=== PATIENT | male | born 1985 | race Caucasian/White ===

== ENCOUNTER → 2018-05-28 | Outpatient (CLI) | payer BC, OTHER ==
[~2018-05-28] MED LIST: CYCL10TA9 PO; NAPR-243 PO; RECEIVED CONTRAST (Hold Metformin) IV SCH; TRM50T PO
[2018-05-28] MEDS: IOHEXOL 350 MG/ML 100 ML (OMNIPAQUE 350) VIAL IV ONE (11:35)
[2018-05-28] MEDS: NS 100 ML (IVPB) BAG IV ONE (11:35)
[2018-05-28] MEDS: CATHETER FLUSH 10 ML SYR IV PRN (11:35)
--- NOTE | 2018-05-28 12:14 | Diagnostic Imaging Report ---
PROCEDURE: CT of the abdomen and pelvis with contrast. TECHNIQUE: Multiple contiguous axial images were obtained through the abdomen and pelvis after administration of intravenous contrast. INDICATION: Pelvic pain and pressure. COMPARISON: No prior studies are available for comparison. FINDINGS: The lung bases are clear. No discrete liver mass is identified. The gallbladder is unremarkable. No biliary ductal dilatation is seen. The pancreas and spleen are unremarkable. No adrenal mass is identified. The kidneys are unremarkable. No hydronephrosis is seen. The aorta is non-aneurysmal. The small and large bowel loops are normal in caliber. No obstruction is seen. There is no ascites. The bladder is unremarkable. No abdominal or pelvic lymphadenopathy is seen. No inflammatory process is identified. The bony structures are unremarkable. IMPRESSION: Unremarkable CT of the abdomen and pelvis. No acute abnormality is detected. Dictated by: Dictated on workstation # [id number]
== END ==
LOC: RAD 11:02
PROVIDERS: ATTEND Nurse Practitioner Family
DX: R10.2 Pelvic and perineal pain (principal)
CPT/HCPCS: 74177

== ENCOUNTER 2018-06-14 06:26 | Outpatient (CLI) | payer OTHER ==
[~2018-06-14] VITALS: Ht 180.3 cm; Wt 97.5 kg
[~2018-06-14 06:26] MED LIST changes: -RECEIVED CONTRAST (Hold Metformin) IV SCH
[2018-06-14] MEDS ORDERED: TAMS0.4C2 PO (14:54)
[2018-06-14] MEDS ORDERED: DEXL60CA PO (14:54)
[2018-06-14] MEDS ORDERED: FINA5TAB6 PO (14:54)
[2018-06-14] MEDS ORDERED: ATOR20TA66 PO (14:54)
== END 2018-06-14 14:56 | disposition home or self-care (01) ==
LOC: PREOP 06:26
PROVIDERS: ATTEND Surgery
DX: Z01.818 Encounter for other preprocedural examination (principal)

== ENCOUNTER 2018-06-21 08:58 | Day surgery (SDC) | payer OTHER ==
[~2018-06-21] VITALS: Ht 180.3 cm; Wt 97.5 kg
[~2018-06-21 08:58] MED LIST changes: +ATOR20TA66 PO; +DEXL60CA PO; +FINA5TAB6 PO; +TAMS0.4C2 PO
--- OUTSIDE RECORDS SUMMARY | 2018-06-21 09:01 | XMS REPORT ---
Author Author Miki Nicole [facility] Address [address] [place], [place] [id number] Care Team Providers Care Maintenance Construction Helper Name Role Phone Miki Nicole PCP Allergies and Adverse Reactions Name Reaction Notes Levaquin feet pain Plan of Treatment Not available. Medications Active Name Start Date Estimated Completion Date SIG Comments Bactrim DS 800-160 mg oral tablet 08/18/2017 take 1 tablet by oral route every 12 hours for 10 days Problem List Not available. Vital Signs Date Time BP-Sys(mm[Hg] BP-Bessie(mm[Hg]) HR(bpm) RR(rpm) Temp WT HT HC BMI BSA BMI Percentile O2 Sat(%) 08/18/2017 5:08:00 PM 128 mmHg 90 mmHg 82 bpm 16 rpm 97.1 F 206.375 lbs 70 in 29.61 kg/m2 2.15 m2 99 % Social History Name Description Comments Tobacco Never smoker Alcohol Never Lives with spouse History of Procedures Date Ordered Description Order Status 08/18/2017 12:00 AM Rocephin 1 gram Injection Reviewed 08/18/2017 12:00 AM THER/PROPH/DIAG INJ SC/IM Reviewed Results Summary Not available. History Of Immunizations Not available. History of Past Illness Name Date of Onset Comments Abscess of right leg Aug 18 2017 5:13PM Cellulitis of right leg Aug 18 2017 5:13PM Payers Insurance Name Company Name Plan Name Plan Number Policy Number Policy Group Number Start Date Cigjocelyne Cigjocelyne [id number] N/A History of Encounters Visit Date Visit Type Provider 08/18/2017 Office visit Miki Nicole OFFICE HELPER CLERICAL
--- OUTSIDE RECORDS SUMMARY | 2018-06-21 09:01 | XMS REPORT ---
Author Author ERIC MOSS Organization [employer] Address Unknown Phone Unavailable Care Team Providers Care Sample Supervisor Name Role Phone ERIC MOSS CP Unavailable Allergies, Adverse Reactions, Alerts Substance Reaction Event Type N.K.D.A. Info Not Available Non Drug Allergy Problems Problem Type Condition Code Onset Dates Condition Status Problem Herpes zoster without mention of complication 053.9 Active Assessment Pharyngitis J02.9 Active Problem Rash and other nonspecific skin eruption 782.1 Active Assessment Allergic rhinitis J30.9 Active Medications No Known Medications Procedures Procedure Coding System Code Date Office Visit, Est Pt., Level 3 CPT-4 54576 May 15, 2015 STREP A ASSAY W/OPTIC CPT-4 61307 May 15, 2015 Vital Signs Date/Time: May 15, 2015 Temperature 97.9 F Weight 199.4 lbs Height 71 in BMI 27.81 Index Blood Pressure Diastolic 88 mmHg Blood Pressure Systolic 142 mmHg Cardiac Monitoring Heart Rate 80 bpm Results Name Result Date Reference Range Unit Abnormality Flag STREP A (IN HOUSE) ----STREP A negative [id number] ----Control + [id number] ----Lot # [id number] ----Exp date 05/07/201620150515 Summary Purpose [employer] Submission
--- OUTSIDE RECORDS SUMMARY | 2018-06-21 09:01 | XMS REPORT | Continuity of Care Document ---
Demographics Preferred Language Unknown Marital Status Unknown Confucianist Affiliation Unknown Race Unknown Ethnic Group Unknown Author Author [facility] Address Unknown Phone Unavailable Allergies Active Description Code Type Severity Reaction Onset Reported/Identified Relationship to Patient Clinical Status Yes No Known Drug Allergies [id number] Drug Allergy Unknown N/A 08/15/2012 Medications There is no data. Problems Date Dx Coded Attending Type Code Diagnosis Diagnosed By 08/17/2012 782.1 RASH 08/17/2012 782.1 RASH 08/19/2012 053.9 HERPES ZOSTER (SHINGLES) 05/29/2018 VIN MOCK APRN Ot R10.2 PELVIC AND PERINEAL PAIN 06/11/2018 VIN MOCK APRN Ot R10.2 PELVIC AND PERINEAL PAIN 06/14/2018 REMI BEST DO Ot Z01.818 ENCOUNTER FOR OTHER PREPROCEDURAL EXAMIN Procedures There is no data. Results There is no data. Encounters ACCT No. Visit Date/Time Discharge Status Pt. Type Provider Facility Loc./Unit Complaint [id number] 08/19/2012 12:31:00 08/19/2012 23:59:59 [facility] Outpatient [id number] 08/17/2012 17:52:00 08/17/2012 23:59:59 [facility] Outpatient 06/201705/28/2018 09:44:56 05/28/2018 23:59:59 [facility] Outpatient Alva Marquez [id number] 06/23/2016 14:29:25 06/23/2016 23:59:59 [facility] Outpatient [id number] 08/18/2017 18:56:06 08/18/2017 23:59:59 CLS Outpatient Miki Nicole [id number] 06/14/2018 06:26:00 06/14/2018 14:56:00 DIS Outpatient REMI BEST DO [facility] PREOP COLONOSCOPY/EGD [id number] 05/28/2018 11:02:00 05/28/2018 23:59:59 CLS Outpatient VIN MOCK APRN [facility] RAD PELVIC PAIN, PRESSURE [id number] 06/21/2018 13:00:00 PEN Preadmit REMI BEST DO [facility] ENDO BLOOD IN STOOL/GERD
--- OUTSIDE RECORDS SUMMARY | 2018-06-21 09:01 | XMS REPORT ---
Author Author SWETA BUSBY [facility] Address Unknown Care Team Providers Care Archivist Name Role Phone SWETA BUSBY Unavailable PROBLEMS Type Condition ICD9-CM Code SJE87-SB Code Onset Dates Condition Status SNOMED Code Problem Rash and other nonspecific skin eruption 782.1 Active 143420561 Problem Herpes zoster without mention of complication 053.9 Active [id number] ALLERGIES Substance Reaction Event Type Date Status N.K.D.A. Unknown Non Drug Allergy Apr, Unknown SOCIAL HISTORY No smoking Hx information available PLAN OF CARE Activity Details Follow Up prn Reason:endo & build up #18 VITAL SIGNS MEDICATIONS No Known Medications RESULTS No Results PROCEDURES Procedure Date Ordered Related Diagnosis Body Site LTD ORAL EVALUATION - PROBLEM FOCUS Apr 23, 2016 INTRAORL-PERIAPICAL 1 FILM [id number] Apr 23, 2016 IMMUNIZATIONS No Known Immunizations
[2018-06-21] MEDS ORDERED: LACTATED RINGERS 1,000 ML IV STA (09:04)
[2018-06-21] MEDS ORDERED: HURRICAINE EXT TUBE (BENZOCAINE) XX PRN (09:15)
[2018-06-21] MEDS ORDERED: LACTATED RINGERS 1,000 ML IV ONE (09:18)
[2018-06-21 09:25] VITALS: BP 141/98
[2018-06-21] MEDS ORDERED: POLY17PO6 PO (09:48)
[2018-06-21] MEDS ORDERED: proPOfol 200 MG/20 ML (DIPRIVAN) VIAL IV ONE ×2 (10:05→13:21)
[2018-06-21] MEDS ORDERED: LIDOCAINE PF 2% 5 ML (XYLOCAINE) VIAL ONE (10:05)
[2018-06-21] MEDS ORDERED: MIDAZOLAM 2 MG/2 ML (VERSED) VIAL ONE (10:05)
--- NOTE | 2018-06-21 13:21 | Progress Note-Pre Operative ---
Pre-Operative Progress Note H&P Reviewed The H&P was reviewed, patient examined and no changes noted. Time Seen by Provider: 13:18 Date H&P Reviewed: Jun 21, 2018 Time H&P Reviewed: 13:19 Pre-Operative Diagnosis: rectal bleed, gastritis REMI BEST DO Jun 21, 2018 13:21
[2018-06-21 14:05] VITALS: BP 128/76
[2018-06-21] MEDS ORDERED: HURRICAINE EXT TUBE (BENZOCAINE) ONE (14:07)
--- NOTE | 2018-06-21 14:29 | Progress Note-Post Operative ---
Post-Operative Progess Note Surgeon (s)/Refinery Operator [employer] (s) Surgeon REMI BEST DO Refinery [employer]: none Pre-Operative Diagnosis rectal bleed, gastritis Post-Operative Diagnosis Gastritis Esophagitis Small Hiatal Hernia Colon polyps Internal Hemorrhoids Procedure & Operative Findings Date of Procedure 06/21/18 Procedure Performed/Findings EGD with bx Colon with bx Anesthesia Type IV sedation by DISTRICT SUPERVISOR Estimated Blood Loss Estimated blood loss (mL): scant Specimens/Packing Specimens Removed antral bx fundus bx GE jxn bx colon polyp bx x 2 TI bx REMI BEST DO Jun 21, 2018 14:29
[2018-06-21 14:30] VITALS: BP 123/88
--- NOTE | 2018-06-21 14:30 | Endoscopy Discharge Instruct ---
Endo Procedure/Findings Findings 1.: Gastritis 2.: Polyp 3.: Internal Hemorrhoids Discharge Instructions - Activity: You might feel a little sleepy until tomorrow. This is due to the medicine you received to relax you. Until tomorrow, you should: NOT drive a car, operate machinery or power tools. NOT drink any alcoholic beverages. NOT make any important decisions or sign importortant papers. Do not return to work until tomorrow, unless otherwise instructed. Resume previous activities tomorrow. Diet: Start by taking liquids. If you tolerate liquids, advance to solid food. make an appointment for one week Notify Physician - If you experience excessive bleeding, unusual abdominal pain, fever, or chest pain, contact your doctor immediately. Follow-Up: - I have received and understand the above instructions and will call my doctor if I have any further questions. Patient Signature Date Nurse Signature Other (Relationship) REMI BEST DO Jun 21, 2018 14:30
[2018-06-21 14:37] VITALS: BP 123/88
--- NOTE | 2018-06-21 15:42 | Anesthesia-General Post-Op ---
MAC Patient Condition Mental Status/LOC: Same as Preop Cardiovascular: Satisfactory Nausea/Vomiting: Absent Respiratory: Satisfactory Pain: Controlled Complications: Absent Post Op Complications Complications None Follow Up Care/Instructions Patient Instructions None needed. Anesthesiology Discharge Order Discharge Order Patient was seen after the procedure and he was doing well, no complaints, stable vital signs, no apparent adverse anesthesia problems. APURVA GOETZ DO Jun 21, 2018 15:42
--- NOTE | 2018-06-22 03:37 | OPERATIVE REPORT ---
DATE OF SERVICE: 06/21/2018 PREOPERATIVE DIAGNOSES: Gastritis, rectal bleed as well as rectal fullness. POSTOPERATIVE DIAGNOSES: 1. Gastritis. 2. Esophagitis. 3. Terminal ileum nodularity. 4. Colon polyps. 5. Internal hemorrhoids. PROCEDURES: 1. EGD with biopsy. 2. Colonoscopy with biopsy. SURGEON: Michael Mcgee DO. SILK SOAKER: None. ANESTHESIA: IV sedation by the MACHINE ENGINEER. SPECIMEN: 1. Biopsy from the antrum as well as fundus and GE junction. 2. Biopsy from terminal ileum. 3. Biopsy of 2 polyps, one from the descending colon and one from the sigmoid colon. BLOOD LOSS: Scant. FLUIDS: Per anesthesia. POSTOPERATIVE CONDITION: Stable. PROCEDURE NOTE: The patient was brought to the endoscopy suite, placed in the left lateral decubitus position and administered IV sedation by the MACHINE ENGINEER who then monitored vital signs the entire time, heart rate, blood pressure and pulse ox, started with EGD, placed the scope down the mouth through the esophagus and into the stomach. Upon entering the stomach, noted some gastritis, possibly ulcers. Pushed into the duodenum, the duodenum looked fine. Pulled back and took a biopsy of the antrum. Retroflexed the scope possibly saw small hiatal hernia, some redness up in the fundus and did a biopsy of the fundus and then looked like a little bit of esophagitis and did a biopsy of the GE junction. No obvious pathology seen, pulled the scope up the esophagus and out the mouth. The patient tolerated the procedure. Switched scopes, switched cameras, went down below and advanced the colonoscope all the way to about 150 cm, able to get to the cecum, took a picture of the appendiceal orifice and then able to get into the terminal ileum. Terminal ileum had some nodularity and almost looked like polyps. Elected to do a couple biopsies here and then slowly withdrew the scope insufflating to look circumferentially at the turner looking at the cecum up the ascending colon to the hepatic flexure, then down the transverse colon, the splenic flexure into the descending colon, saw a polyp here, did a biopsy of this polyp. Continued down into the sigmoid colon, saw another polyp, did cold biopsy and then continued down into the rectum, retroflexed the rectal vault, saw some internal hemorrhoids, took a picture of this, did not see any fullness or any cause per the patient's fullness and then removed the scope. The patient tolerated the procedure and he was recovered in the endoscopy suite. Job ID: [id number] DocumentID: [id number] Dictated Date: 06/21/2018 19:58:28 Event Crew Technician Date: 06/22/2018 03:36:42 Dictated By: MICHAEL MCGEE DO
== END 2018-06-21 14:40 | disposition home or self-care (01) ==
LOC: ENDO 08:58
PROVIDERS: ATTEND Surgery
DX: K29.50 Unspecified chronic gastritis without bleeding (principal); K20.9 Esophagitis, unspecified; K63.5 Polyp of colon; K64.8 Other hemorrhoids; K59.00 Constipation, unspecified; E78.5 Hyperlipidemia, unspecified; Z87.891 Personal history of nicotine dependence; Z79.899 Other long term (current) drug therapy

== ENCOUNTER → 2020-12-14 | Outpatient (CLI) | payer OTHER ==
[~2020-12-14] MED LIST changes: +POLY17PO6 PO
--- NOTE | 2020-12-14 11:24 | Diagnostic Imaging Report ---
PROCEDURE: US Thyroid. TECHNIQUE: Multiple real-time grayscale images were obtained of the thyroid in various projections. INDICATION: Neck fullness, left neck pain COMPARISON: None available FINDINGS: The right lobe of the thyroid gland measures 5.0 x 1.8 x 1.8 cm. The left lobe of the thyroid gland measures 4.4 x 1.3 x 1.5 cm. The thyroid gland maintains a homogeneous echotexture without discrete nodule. The isthmus is unremarkable. IMPRESSION: Unremarkable examination without thyroid nodule or thyroid enlargement. Dictated by: Dictated on workstation # [id number]
== END ==
LOC: RAD 08:00
PROVIDERS: ATTEND Family Medicine
DX: M54.2 Cervicalgia (principal); R22.1 Localized swelling, mass and lump, neck
CPT/HCPCS: 76536